=== PATIENT | male | born 1975 | race Two or more races ===

== ENCOUNTER 2018-04-21 12:21 | Emergency (ER) | payer OTHER ==
[2018-04-21 12:21] VITALS: BP 133/94
[2018-04-21] MEDS ORDERED: TETANUS-DIPTH-ACEL PERTUSSIS 0.5ML SYRG IM ONE (13:45)
== END 2018-04-21 14:05 | disposition home or self-care (01) ==
LOC: ER 12:23
DX: S61.432A Puncture wound without foreign body of left hand, initial encounter (principal); W54.0XXA Bitten by dog, initial encounter; Y93.89 Activity, other specified; Y99.8 Other external cause status; Y92.89 Other specified places as the place of occurrence of the external cause
CPT/HCPCS: 73130; 90471; 90715

== ENCOUNTER 2022-09-27 12:49 | Inpatient (IN) | payer MEDICAID, OTHER ==
[~2022-09-27] VITALS: Ht 172.7 cm; Wt 74.6 kg
[2022-09-27 14:01] LABS: Basophils # (auto) 0.1 10 ^3/uL (0-0.2); Basophils % (auto) 0.5 % (0.0-2.0); Eosinophils # (auto) 0.1 10 ^3/uL (0-0.8)
[2022-09-27 14:02] LABS: Urine Bacteria NONE SEEN /hpf (None Seen); Urine Blood 1+ /uL (Negative); Urine Specific Gravity 1.031 (1.001-1.035); Urine WBC 4 /hpf (0 - 3)
[2022-09-27 14:03] LABS: Eosinophils % (auto) 0.9 % (0.0-7.0); Hematocrit 34.2 % (41.0-53.0); Hemoglobin 11.2 g/dL (13.5-17.5); Lymphocytes # (auto) 1.1 10 ^3/uL (0.4-5.4); Lymphocytes % (auto) 9.1 % (10.0-50.0); Mean Corpuscular Hemoglobin 27.3 pg (28.0-32.0); Mean Corpuscular Hgb Conc. 32.8 g/dL (32.0-36.0); Mean Corpuscular Volume 83.3 fL (80.0-100.0); Monocytes # (auto) 0.6 10 ^3/uL (0-1.3); Monocytes % (auto) 5.4 % (0.0-12.0); Neutrophils # (auto) 9.8 10 ^3/uL (1.6-8.6); Neutrophils % (auto) 84.1 % (37.0-80.0); Red Blood Cells 4.11 10^6/uL (4.5-5.90); Red Cell Distribution Width 12.4 % (11.8-14.3); White Blood Cell 11.7 10^3/uL (4.4-10.8)
[2022-09-27 14:45] LABS: Potassium 3.6 mmol/L (3.5-5.1)
[2022-09-27 15:06] LABS: BUN/Creatinine Ratio 8.1 (10.0-20.0)
[2022-09-27 15:07] LABS: Albumin 2.1 g/dL (3.4-5.0); Bilirubin, Total 0.2 mg/dL (0.2-1.0); Calcium 8.8 mg/dL (8.5-10.1); Total Protein 7.8 g/dL (6.4-8.2)
[2022-09-27] MEDS ORDERED: PIPERACILLIN-TAZOB 3.375GM 100 ML IV ONE (17:30)
[2022-09-27] MEDS ORDERED: VANCOMYCIN 1GM/250ML 250 ML IV ONE (17:30)
[2022-09-27] MEDS ORDERED: InsuLIN REG 1unit/0.01ml Soln (100units/ml) IV ONE (17:45)
[2022-09-27] MEDS ORDERED: ACETAMINOPHEN 325 MG TAB PO PRN (18:45)
[2022-09-27] MEDS ORDERED: DOCUSATE SOD 100 MG CAP PO PRN (18:45)
[2022-09-27] MEDS ORDERED: DEXTROSE (50%) 50ML SYRG IV PRN (18:45)
[2022-09-27] MEDS ORDERED: ONDANSETRON HCL 4 MG/2 ML VIAL IV PRN (18:45)
[2022-09-27] MEDS ORDERED: MORPHINE SULFATE INJ 2 MG/ml SYRG IV PRN (18:45)
[2022-09-27] MEDS ORDERED: NITROGLYCERIN 0.4 MG SL TAB SL PRN (18:45)
[2022-09-27] MEDS ORDERED: CLINDAMYCIN 900MG IV 50 ML IV ONE (21:00)
[2022-09-27] MEDS: PIPERACILLIN-TAZOB 3.375GM 100 ML IV SCH (21:35)
[2022-09-27] MEDS ORDERED: SODIUM CHLOR 0.9% PF (SALINE LOCK) 10ML VIAL/SYR IV SCH (22:00)
[2022-09-27] MEDS: ACCU-CHEK COMFORT CURVE STRIP VI SCH (23:36)
[2022-09-27] MEDS: InsuLIN REG 1unit/0.01ml Soln (100units/ml) SC SCH (23:37)
[2022-09-27] MEDS: LINEZOLID 600MG/300ML 300 ML IV SCH (23:37)
[2022-09-27] MEDS: HYDROcodone-ACET 5/325MG TAB PO PRN (23:55)
[2022-09-28] MEDS: SODIUM CHLORIDE 0.9% 1,000 ML IV SCH ×3 (00:54→17:31)
[2022-09-28] MEDS: ACCU-CHEK COMFORT CURVE STRIP VI SCH ×4 (06:52→22:00)
[2022-09-28] MEDS: PIPERACILLIN-TAZOB 3.375GM 100 ML IV SCH ×3 (06:52→23:04)
[2022-09-28] MEDS: InsuLIN REG 1unit/0.01ml Soln (100units/ml) SC SCH ×4 (06:52→23:07)
[2022-09-28 08:05] LABS: INR 1.08 (0.9-1.15); Partial Thromboplastin Time 34.8 sec (24.6-33.4)
[2022-09-28 08:07] LABS: Potassium 3.7 mmol/L (3.5-5.1)
[2022-09-28 08:09] LABS: Basophils # (auto) 0.1 10 ^3/uL (0-0.2); Basophils % (auto) 0.6 % (0.0-2.0); Eosinophils # (auto) 0.2 10 ^3/uL (0-0.8); Lymphocytes % (auto) 11.4 % (10.0-50.0); Monocytes # (auto) 0.6 10 ^3/uL (0-1.3); Neutrophils # (auto) 7.1 10 ^3/uL (1.6-8.6)
[2022-09-28 08:11] LABS: Eosinophils % (auto) 2.4 % (0.0-7.0); Hematocrit 35.4 % (41.0-53.0); Hemoglobin 11.8 g/dL (13.5-17.5); Mean Corpuscular Hemoglobin 28.1 pg (28.0-32.0); Mean Corpuscular Hgb Conc. 33.4 g/dL (32.0-36.0); Monocytes % (auto) 7.1 % (0.0-12.0); Neutrophils % (auto) 78.5 % (37.0-80.0); Red Blood Cells 4.21 10^6/uL (4.5-5.90); Red Cell Distribution Width 12.6 % (11.8-14.3)
[2022-09-28 08:20] LABS: Albumin 2.1 g/dL (3.4-5.0); BUN/Creatinine Ratio 13.2 (10.0-20.0); Bilirubin, Total 0.3 mg/dL (0.2-1.0); Calcium 8.8 mg/dL (8.5-10.1); Total Protein 7.9 g/dL (6.4-8.2)
[2022-09-28] MEDS: LINEZOLID 600MG/300ML 300 ML IV SCH ×2 (10:24→21:01)
[2022-09-28] MEDS: HYDROcodone-ACET 5/325MG TAB PO PRN ×2 (12:59→18:56)
[2022-09-28 17:53] VITALS: BP 169/92
[2022-09-28 20:14] VITALS: BP 150/78
[2022-09-28 22:00] VITALS: BP 149/83
[2022-09-28] MEDS: DAKINS QUARTER STR 0.125% (NaHypochlorite) 473 ML TOPICAL SOL TOP SCH (22:00)
[2022-09-29 05:00] VITALS: BP 143/83
[2022-09-29] MEDS: SODIUM CHLORIDE 0.9% 1,000 ML IV SCH ×2 (05:55→16:18)
[2022-09-29] MEDS: ACCU-CHEK COMFORT CURVE STRIP VI SCH ×7 (05:59→22:00)
[2022-09-29] MEDS: PIPERACILLIN-TAZOB 3.375GM 100 ML IV SCH ×3 (05:59→22:00)
[2022-09-29 06:21] LABS: Eosinophils # (auto) 0.2 10 ^3/uL (0-0.8); Hematocrit 31.3 % (41.0-53.0); Hemoglobin 10.4 g/dL (13.5-17.5); Mean Corpuscular Hgb Conc. 33.3 g/dL (32.0-36.0); Monocytes # (auto) 0.7 10 ^3/uL (0-1.3)
[2022-09-29 06:26] LABS: Basophils # (auto) 0.1 10 ^3/uL (0-0.2); Eosinophils % (auto) 1.9 % (0.0-7.0); Lymphocytes # (auto) 1.3 10 ^3/uL (0.4-5.4); Lymphocytes % (auto) 14.5 % (10.0-50.0); Mean Corpuscular Hemoglobin 27.5 pg (28.0-32.0); Mean Corpuscular Volume 82.8 fL (80.0-100.0); Monocytes % (auto) 7.9 % (0.0-12.0); Neutrophils # (auto) 6.4 10 ^3/uL (1.6-8.6); Neutrophils % (auto) 74.7 % (37.0-80.0); Red Blood Cells 3.78 10^6/uL (4.5-5.90); Red Cell Distribution Width 12.8 % (11.8-14.3); White Blood Cell 8.6 10^3/uL (4.4-10.8)
[2022-09-29] MEDS: InsuLIN REG 1unit/0.01ml Soln (100units/ml) SC SCH ×5 (06:32→23:00)
[2022-09-29 06:45] LABS: BUN/Creatinine Ratio 14.9 (10.0-20.0); Calcium 8.5 mg/dL (8.5-10.1); Potassium 3.2 mmol/L (3.5-5.1)
[2022-09-29] MEDS: HYDROcodone-ACET 5/325MG TAB PO PRN ×2 (06:48→12:31)
[2022-09-29 09:05] VITALS: BP 148/68
[2022-09-29] MEDS: LINEZOLID 600MG/300ML 300 ML IV SCH ×2 (09:18→22:00)
[2022-09-29] MEDS ORDERED: POTASSIUM EFFERVESENT TAB 25 MEQ PO ONE (09:45)
[2022-09-29] MEDS ORDERED: DEXTROSE (50%) 50ML SYRG IV PRN (09:45)
[2022-09-29] MEDS: DAKINS QUARTER STR 0.125% (NaHypochlorite) 473 ML TOPICAL SOL TOP SCH ×2 (09:57→22:00)
[2022-09-29 12:31] VITALS: BP 171/83
[2022-09-29] MEDS ORDERED: LABETALOL HCL 5 MG/ML 4ML SYRINGE IV PRN (13:30)
[2022-09-29 16:24] VITALS: BP 150/91
[2022-09-29] MEDS: HYDROcodone-ACET 10/325MG TAB PO PRN (17:52)
[2022-09-29 22:00] VITALS: BP 140/77
[2022-09-29] MEDS ORDERED: INSULIN LANTUS (GLARGINE) 1 /0.01ml (100units/ml) SC SCH (22:00)
[2022-09-30] MEDS: SODIUM CHLORIDE 0.9% 1,000 ML IV SCH ×2 (01:30→11:30)
[2022-09-30 05:00] VITALS: BP 146/79
[2022-09-30] MEDS: ACCU-CHEK COMFORT CURVE STRIP VI SCH ×5 (05:37→22:07)
[2022-09-30] MEDS: PIPERACILLIN-TAZOB 3.375GM 100 ML IV SCH ×4 (06:12→23:00)
[2022-09-30] MEDS: InsuLIN REG 1unit/0.01ml Soln (100units/ml) SC SCH ×4 (06:26→22:05)
[2022-09-30 06:28] LABS: Basophils # (auto) 0.1 10 ^3/uL (0-0.2); Basophils % (auto) 0.7 % (0.0-2.0); Hemoglobin 9.8 g/dL (13.5-17.5); Neutrophils % (auto) 72.9 % (37.0-80.0); Potassium 3.5 mmol/L (3.5-5.1); Red Cell Distribution Width 12.6 % (11.8-14.3)
[2022-09-30 06:30] LABS: Eosinophils # (auto) 0.2 10 ^3/uL (0-0.8); Eosinophils % (auto) 2.1 % (0.0-7.0); Hematocrit 28.8 % (41.0-53.0); Lymphocytes # (auto) 1.4 10 ^3/uL (0.4-5.4); Lymphocytes % (auto) 16.6 % (10.0-50.0); Mean Corpuscular Hemoglobin 28.1 pg (28.0-32.0); Mean Corpuscular Volume 82.7 fL (80.0-100.0); Monocytes # (auto) 0.6 10 ^3/uL (0-1.3); Monocytes % (auto) 7.7 % (0.0-12.0); Neutrophils # (auto) 5.9 10 ^3/uL (1.6-8.6); Red Blood Cells 3.48 10^6/uL (4.5-5.90); White Blood Cell 8.2 10^3/uL (4.4-10.8)
[2022-09-30] MEDS: MORPHINE SULFATE INJ 2 MG/ml SYRG IV PRN ×2 (06:34→13:42)
[2022-09-30] MEDS ORDERED: ROCURONIUM 10MG/ML 10ML VIAL IV ONE (06:51)
[2022-09-30] MEDS ORDERED: SUCCINYLCHOLINE CHLORIDE 20 MG/ML 10ML VIAL IV ONE (06:51)
[2022-09-30] MEDS ORDERED: PROPOFOL 10 MG/ML 20 ML IV ONE (07:04)
[2022-09-30] MEDS ORDERED: ONDANSETRON HCL 4 MG/2 ML VIAL ONE (07:04)
[2022-09-30] MEDS ORDERED: MIDAZOLAM HCL 2MG/2ML 2ml VIAL (1mg/ml) ONE (07:04)
[2022-09-30] MEDS ORDERED: fentaNYL CITRATE 100 MCG/2 ML VL ONE (07:04)
[2022-09-30] MEDS ORDERED: SODIUM CHLORIDE LOCK 10 ML ONE (07:04)
[2022-09-30] MEDS ORDERED: DexAMETHasone SOD PHOS 4 MG/1ML SDV INJ IV ONE (07:10)
[2022-09-30] MEDS ORDERED: METOCLOPRAMIDE HCL 5MG/ml INJ 2ml VIAL IV PRN (07:15)
[2022-09-30] MEDS ORDERED: HYDROmorphone HCL 2 MG/ML VL/or syr IV PRN ×2 (07:15)
[2022-09-30] MEDS ORDERED: ACCU-CHEK COMFORT CURVE STRIP VI ONE (07:15)
[2022-09-30] MEDS ORDERED: MORPHINE SULFATE INJ 2 MG/ml SYRG IV PRN (07:15)
[2022-09-30] MEDS: BUPIVACAINE HCL 0.25% P/F 10 ML VIAL ONE ×2 (07:37→07:45)
[2022-09-30] MEDS ORDERED: LIDOCAINE W/ EPINEPHRINE 1% 20ML VIAL ONE (07:37)
[2022-09-30] MEDS: LIDOCAINE 1% HCL (LOCAL ANESTH.) INJ 20ML MDV ONE ×2 (07:39→07:45)
[2022-09-30] MEDS ORDERED: LABETALOL HCL 5 MG/ML ML 20ML VIAL IV ONE (09:08)
[2022-09-30] MEDS: DAKINS QUARTER STR 0.125% (NaHypochlorite) 473 ML TOPICAL SOL TOP SCH ×2 (09:15→22:00)
[2022-09-30] MEDS: LINEZOLID 600MG/300ML 300 ML IV SCH ×2 (09:36→21:00)
[2022-09-30] MEDS: NIFEdipine ER 30 MG TAB PO SCH (11:36)
[2022-09-30] MEDS: HYDROcodone-ACET 10/325MG TAB PO PRN ×2 (12:03→18:43)
[2022-09-30 12:22] VITALS: BP 171/84
[2022-09-30 17:00] VITALS: BP 148/76
[2022-09-30] MEDS: hydrALAZINE HCL 20 MG/ML VL IV SCH (17:44)
[2022-09-30 22:00] VITALS: BP 118/70
[2022-09-30] MEDS ORDERED: INSULIN LANTUS (GLARGINE) 1 /0.01ml (100units/ml) SC SCH (22:00)
[2022-10-01] MEDS: hydrALAZINE HCL 20 MG/ML VL IV SCH ×5 (00:17→23:56)
[2022-10-01] MEDS: HYDROcodone-ACET 10/325MG TAB PO PRN (02:41)
[2022-10-01 05:00] VITALS: BP 133/76
[2022-10-01 05:54] LABS: Albumin 1.5 g/dL (3.4-5.0); BUN/Creatinine Ratio 15.9 (10.0-20.0); Potassium 3.7 mmol/L (3.5-5.1)
[2022-10-01 05:57] LABS: Bilirubin, Total 0.2 mg/dL (0.2-1.0); Total Protein 6.3 g/dL (6.4-8.2)
[2022-10-01] MEDS: PIPERACILLIN-TAZOB 3.375GM 100 ML IV SCH (06:11)
[2022-10-01] MEDS: ACCU-CHEK COMFORT CURVE STRIP VI SCH ×4 (06:30→22:01)
[2022-10-01 06:43] LABS: Basophils # (auto) 0.1 10 ^3/uL (0-0.2); Eosinophils # (auto) 0.2 10 ^3/uL (0-0.8); Hemoglobin 9.4 g/dL (13.5-17.5); White Blood Cell 7.8 10^3/uL (4.4-10.8)
[2022-10-01 06:46] LABS: Basophils % (auto) 0.9 % (0.0-2.0); Eosinophils % (auto) 2.4 % (0.0-7.0); Hematocrit 28.3 % (41.0-53.0); Lymphocytes # (auto) 1.6 10 ^3/uL (0.4-5.4); Lymphocytes % (auto) 20.7 % (10.0-50.0); Mean Corpuscular Hemoglobin 27.6 pg (28.0-32.0); Mean Corpuscular Hgb Conc. 33.1 g/dL (32.0-36.0); Mean Corpuscular Volume 83.3 fL (80.0-100.0); Monocytes # (auto) 0.7 10 ^3/uL (0-1.3); Monocytes % (auto) 8.5 % (0.0-12.0); Neutrophils # (auto) 5.3 10 ^3/uL (1.6-8.6); Neutrophils % (auto) 67.5 % (37.0-80.0); Red Cell Distribution Width 12.9 % (11.8-14.3)
[2022-10-01] MEDS: InsuLIN REG 1unit/0.01ml Soln (100units/ml) SC SCH ×4 (06:48→21:43)
[2022-10-01 09:00] VITALS: BP 124/70
[2022-10-01] MEDS: NIFEdipine ER 30 MG TAB PO SCH (09:58)
[2022-10-01] MEDS: LINEZOLID 600MG/300ML 300 ML IV SCH (12:10)
[2022-10-01] MEDS: DAKINS QUARTER STR 0.125% (NaHypochlorite) 473 ML TOPICAL SOL TOP SCH ×2 (12:15→21:50)
[2022-10-01 12:37] VITALS: BP 144/74
[2022-10-01] MEDS ORDERED: VANCOMYCIN PER PHARMACY 0 MG IV SCH (13:15)
[2022-10-01] MEDS: MORPHINE SULFATE INJ 2 MG/ml SYRG IV PRN (14:57)
[2022-10-01] MEDS: VANCOMYCIN 1GM/250ML 250 ML IV SCH ×2 (15:15→21:47)
[2022-10-01 16:42] VITALS: BP 127/69
[2022-10-01] MEDS: PIPERACILLIN-TAZO 4.5GM 100 ML IV SCH ×2 (17:41→23:51)
[2022-10-01] MEDS: INSULIN LANTUS (GLARGINE) 1 /0.01ml (100units/ml) SC SCH (21:43)
[2022-10-01 22:00] VITALS: BP 152/68
[2022-10-02] MEDS: VANCOMYCIN 1GM/250ML 250 ML IV SCH ×2 (04:56→22:37)
[2022-10-02 05:00] VITALS: BP 112/67
[2022-10-02] MEDS: PIPERACILLIN-TAZO 4.5GM 100 ML IV SCH ×3 (06:30→17:26)
[2022-10-02] MEDS: hydrALAZINE HCL 20 MG/ML VL IV SCH ×3 (06:31→17:25)
[2022-10-02] MEDS: ACCU-CHEK COMFORT CURVE STRIP VI SCH ×4 (06:31→22:28)
[2022-10-02] MEDS: InsuLIN REG 1unit/0.01ml Soln (100units/ml) SC SCH ×4 (06:42→22:50)
[2022-10-02 08:00] VITALS: BP 121/69
[2022-10-02] MEDS: NIFEdipine ER 30 MG TAB PO SCH (09:38)
[2022-10-02] MEDS: MORPHINE SULFATE INJ 2 MG/ml SYRG IV PRN (13:24)
[2022-10-02] MEDS: DAKINS QUARTER STR 0.125% (NaHypochlorite) 473 ML TOPICAL SOL TOP SCH ×2 (16:35→22:37)
[2022-10-02 22:00] VITALS: BP 128/74
[2022-10-02] MEDS: INSULIN LANTUS (GLARGINE) 1 /0.01ml (100units/ml) SC SCH (22:27)
[2022-10-03] MEDS: PIPERACILLIN-TAZO 4.5GM 100 ML IV SCH ×4 (00:14→17:29)
[2022-10-03 05:00] VITALS: BP 126/68
[2022-10-03] MEDS: VANCOMYCIN 1GM/250ML 250 ML IV SCH ×2 (05:58→15:15)
[2022-10-03] MEDS: hydrALAZINE HCL 20 MG/ML VL IV SCH ×4 (06:00→17:30)
[2022-10-03] MEDS: ACCU-CHEK COMFORT CURVE STRIP VI SCH ×4 (06:02→21:58)
[2022-10-03] MEDS: InsuLIN REG 1unit/0.01ml Soln (100units/ml) SC SCH ×4 (06:02→22:18)
[2022-10-03 07:00] LABS: Basophils # (auto) 0.1 10 ^3/uL (0-0.2); Eosinophils # (auto) 0.2 10 ^3/uL (0-0.8); Lymphocytes # (auto) 1.3 10 ^3/uL (0.4-5.4); Monocytes # (auto) 0.6 10 ^3/uL (0-1.3); Red Cell Distribution Width 12.8 % (11.8-14.3)
[2022-10-03 07:03] LABS: Basophils % (auto) 0.8 % (0.0-2.0); Eosinophils % (auto) 2.7 % (0.0-7.0); Hematocrit 29.4 % (41.0-53.0); Lymphocytes % (auto) 18.4 % (10.0-50.0); Mean Corpuscular Hemoglobin 27.6 pg (28.0-32.0); Mean Corpuscular Hgb Conc. 33.8 g/dL (32.0-36.0); Mean Corpuscular Volume 81.7 fL (80.0-100.0); Neutrophils % (auto) 69.1 % (37.0-80.0); White Blood Cell 7.2 10^3/uL (4.4-10.8)
[2022-10-03 07:14] LABS: Calcium 8.2 mg/dL (8.5-10.1); Potassium 3.3 mmol/L (3.5-5.1)
[2022-10-03 07:16] LABS: BUN/Creatinine Ratio 8.6 (10.0-20.0)
[2022-10-03 08:58] VITALS: BP 136/71
[2022-10-03 09:29] LABS: INR 1.16 (0.9-1.15); Partial Thromboplastin Time 34.6 sec (24.6-33.4)
[2022-10-03] MEDS: NIFEdipine ER 30 MG TAB PO SCH (09:31)
[2022-10-03] MEDS: DAKINS QUARTER STR 0.125% (NaHypochlorite) 473 ML TOPICAL SOL TOP SCH ×2 (09:31→21:58)
[2022-10-03 13:00] VITALS: BP 141/84
[2022-10-03 16:37] VITALS: BP 136/71
[2022-10-03] MEDS: HYDROcodone-ACET 10/325MG TAB PO PRN (18:04)
[2022-10-03 22:00] VITALS: BP 131/76
[2022-10-03] MEDS: INSULIN LANTUS (GLARGINE) 1 /0.01ml (100units/ml) SC SCH (22:19)
[2022-10-04] MEDS: PIPERACILLIN-TAZO 4.5GM 100 ML IV SCH ×4 (00:01→17:31)
[2022-10-04] MEDS: VANCOMYCIN 1GM/250ML 250 ML IV SCH ×2 (00:58→11:49)
[2022-10-04 05:00] VITALS: BP 126/68
[2022-10-04] MEDS: hydrALAZINE HCL 20 MG/ML VL IV SCH ×4 (05:02→17:31)
[2022-10-04] MEDS: MORPHINE SULFATE INJ 2 MG/ml SYRG IV PRN ×3 (05:16→22:08)
[2022-10-04] MEDS: InsuLIN REG 1unit/0.01ml Soln (100units/ml) SC SCH ×4 (06:10→22:02)
[2022-10-04] MEDS: ACCU-CHEK COMFORT CURVE STRIP VI SCH ×4 (06:10→22:03)
[2022-10-04 06:57] LABS: Basophils # (auto) 0.1 10 ^3/uL (0-0.2); Basophils % (auto) 1.2 % (0.0-2.0); Eosinophils # (auto) 0.3 10 ^3/uL (0-0.8); Eosinophils % (auto) 4.5 % (0.0-7.0); Hematocrit 29.1 % (41.0-53.0); Hemoglobin 9.9 g/dL (13.5-17.5); Lymphocytes # (auto) 1.2 10 ^3/uL (0.4-5.4); Lymphocytes % (auto) 19.1 % (10.0-50.0); Mean Corpuscular Hemoglobin 27.7 pg (28.0-32.0); Mean Corpuscular Hgb Conc. 33.9 g/dL (32.0-36.0); Mean Corpuscular Volume 81.6 fL (80.0-100.0); Monocytes # (auto) 0.6 10 ^3/uL (0-1.3); Neutrophils # (auto) 4.1 10 ^3/uL (1.6-8.6); Neutrophils % (auto) 66.2 % (37.0-80.0); Red Blood Cells 3.57 10^6/uL (4.5-5.90); Red Cell Distribution Width 12.9 % (11.8-14.3); White Blood Cell 6.3 10^3/uL (4.4-10.8)
[2022-10-04 07:12] LABS: Potassium 3.4 mmol/L (3.5-5.1)
[2022-10-04 07:17] LABS: BUN/Creatinine Ratio 9.6 (10.0-20.0); Calcium 8.3 mg/dL (8.5-10.1)
[2022-10-04 08:30] VITALS: BP 140/70
[2022-10-04 08:39] VITALS: BP 140/70
[2022-10-04] MEDS: NIFEdipine ER 30 MG TAB PO SCH (10:27)
[2022-10-04] MEDS: POTASSIUM EFFERVESENT TAB 25 MEQ PO SCH (10:28)
[2022-10-04] MEDS: DAKINS QUARTER STR 0.125% (NaHypochlorite) 473 ML TOPICAL SOL TOP SCH ×2 (10:28→22:04)
[2022-10-04 12:33] VITALS: BP 155/84
[2022-10-04] MEDS ORDERED: LIDOCAINE 1% (LOCAL ANESTH.) PF 5ml SDV ID ONE (14:45)
[2022-10-04] MEDS ORDERED: LANC-336 XX (15:10)
[2022-10-04] MEDS ORDERED: NIFE1TAB31 PO (15:10)
[2022-10-04] MEDS ORDERED: METF-370 PO (15:10)
[2022-10-04] MEDS ORDERED: BLOO1KIT60 XX (15:10)
[2022-10-04] MEDS ORDERED: INSU1INJ19 SC (15:10)
[2022-10-04] MEDS ORDERED: INSU-567 XX (15:10)
[2022-10-04] MEDS ORDERED: HYDR-4798 PO (15:10)
[2022-10-04 16:35] VITALS: BP 152/81
[2022-10-04] MEDS: metFORMIN HYDROCHLORIDE 500 MG TAB PO SCH (17:32)
[2022-10-04 22:00] VITALS: BP 108/60
[2022-10-04] MEDS: SODIUM CHLOR 0.9% PF (SALINE LOCK) 10ML VIAL/SYR IV SCH (22:00)
[2022-10-04] MEDS: INSULIN LANTUS (GLARGINE) 1 /0.01ml (100units/ml) SC SCH (22:03)
[2022-10-05] MEDS: hydrALAZINE HCL 20 MG/ML VL IV SCH ×4 (00:19→19:00)
[2022-10-05] MEDS: PIPERACILLIN-TAZO 4.5GM 100 ML IV SCH ×3 (00:19→12:41)
[2022-10-05 05:00] VITALS: BP 99/55
[2022-10-05] MEDS: InsuLIN REG 1unit/0.01ml Soln (100units/ml) SC SCH ×3 (06:13→19:16)
[2022-10-05] MEDS: ACCU-CHEK COMFORT CURVE STRIP VI SCH ×3 (06:14→17:30)
[2022-10-05 07:01] LABS: BUN/Creatinine Ratio 8.6 (10.0-20.0); Calcium 8.4 mg/dL (8.5-10.1); Potassium 3.5 mmol/L (3.5-5.1)
[2022-10-05 08:00] VITALS: BP 109/57
[2022-10-05] MEDS: metFORMIN HYDROCHLORIDE 500 MG TAB PO SCH ×2 (09:25→18:51)
[2022-10-05] MEDS: NIFEdipine ER 30 MG TAB PO SCH (09:28)
[2022-10-05] MEDS: POTASSIUM EFFERVESENT TAB 25 MEQ PO SCH (09:29)
[2022-10-05 09:30] VITALS: BP 109/57
[2022-10-05] MEDS: SODIUM CHLOR 0.9% PF (SALINE LOCK) 10ML VIAL/SYR IV SCH (09:30)
[2022-10-05] MEDS: DAKINS QUARTER STR 0.125% (NaHypochlorite) 473 ML TOPICAL SOL TOP SCH (10:30)
[2022-10-05 11:11] VITALS: BP 133/79
[2022-10-05 13:00] VITALS: BP 146/78
[2022-10-05] MEDS ORDERED: cefTRIAXone 1GM/50ML D5W 50 ML IV SCH (15:54)
[2022-10-05 16:40] VITALS: BP 116/73
[2022-10-05] MEDS ORDERED: DAPTOmycin 500 MG in SODIUM CHL 0.9% 50 ML IV SCH (18:00)
== END 2022-10-05 19:00 | disposition home health service (06) | DRG 853 ==
LOC: ER 12:49 → OVERFLOW 19:03 → TELE-WESTW 09-28 17:51 → WEST WING 09-28 19:05
PROVIDERS: ADMIT Nurse Practitioner Family; ATTEND Nurse Practitioner Acute Care
PROC: 0Y6W0Z0 Detachment at Left 4th Toe, Complete, Open Approach (ICD-10-PCS; 2022-09-30)
PROC: 0Y6Y0Z0 Detachment at Left 5th Toe, Complete, Open Approach (ICD-10-PCS; 2022-09-30)
PROC: 02HV33Z Insertion of Infusion Device into Superior Vena Cava, Percutaneous Approach (ICD-10-PCS; principal; 2022-10-04)
PROC: B548ZZA Ultrasonography of Superior Vena Cava, Guidance (ICD-10-PCS; 2022-10-04)
DX: A41.9 Sepsis, unspecified organism (principal); E43 Unspecified severe protein-calorie malnutrition; M72.6 Necrotizing fasciitis; I96 Gangrene, not elsewhere classified; L03.116 Cellulitis of left lower limb; M86.8X7 Other osteomyelitis, ankle and foot; N17.9 Acute kidney failure, unspecified; F17.200 Nicotine dependence, unspecified, uncomplicated; E11.65 Type 2 diabetes mellitus with hyperglycemia; E11.621 Type 2 diabetes mellitus with foot ulcer; L97.509 Non-pressure chronic ulcer of other part of unspecified foot with unspecified severity; E11.40 Type 2 diabetes mellitus with diabetic neuropathy, unspecified; E11.51 Type 2 diabetes mellitus with diabetic peripheral angiopathy without gangrene; E11.628 Type 2 diabetes mellitus with other skin complications; E11.69 Type 2 diabetes mellitus with other specified complication; E78.5 Hyperlipidemia, unspecified; E87.6 Hypokalemia; I10 Essential (primary) hypertension; J43.9 Emphysema, unspecified; L97.529 Non-pressure chronic ulcer of other part of left foot with unspecified severity; Z68.25 Body mass index [BMI] 25.0-25.9, adult; Z59.7 Insufficient social insurance and welfare support; Z79.84 Long term (current) use of oral hypoglycemic drugs; Z82.3 Family history of stroke; Z91.148 Patient's other noncompliance with medication regimen for other reason; Z88.8 Allergy status to other drugs, medicaments and biological substances
CPT/HCPCS: 36415; 36569; 73700; 80048; 80053; 80202; 81001; 82010; 82962; 83036; 83605; 83690; 84484; 85025; 85610; 85652; 85730; 86141; 86850; 86900; 86901; 87040; 87070; 87075; 87205; 93306; 93926; 93971; G0378; J0330; J0696; J1100; J1815; J2001; J2250; J2405; J2543; J2704; J3490

== ENCOUNTER 2022-10-08 06:04 | Inpatient (IN) | payer SELFPAY ==
[~2022-10-08] VITALS: Ht 177.8 cm
[~2022-10-08 06:04] MED LIST: BLOO1KIT60 XX; HYDR-4798 PO; INSU-567 XX; INSU1INJ19 SC; LANC-336 XX; METF-370 PO; NIFE1TAB31 PO
[2022-10-08] MEDS ORDERED: CLINDAMYCIN 600MG IV 50 ML IV ONE (07:30)
[2022-10-08] MEDS ORDERED: cefTRIAXone 1GM/50ML D5W 50 ML IV ONE (07:30)
[2022-10-08 07:50] LABS: Hematocrit 34.3 % (41.0-53.0); Nucleated Red Blood Cells % 0.1 %
[2022-10-08 07:53] LABS: Basophils # (auto) 0.2 10 ^3/uL (0-0.2); Basophils % (auto) 1.7 % (0.0-2.0); Eosinophils # (auto) 0.2 10 ^3/uL (0-0.8); Eosinophils % (auto) 2.2 % (0.0-7.0); Hemoglobin 11.3 g/dL (13.5-17.5); Lymphocytes # (auto) 0.9 10 ^3/uL (0.4-5.4); Lymphocytes % (auto) 10.3 % (10.0-50.0); Mean Corpuscular Hemoglobin 27.2 pg (28.0-32.0); Mean Corpuscular Hgb Conc. 33.1 g/dL (32.0-36.0); Mean Corpuscular Volume 82.3 fL (80.0-100.0); Monocytes # (auto) 0.5 10 ^3/uL (0-1.3); Neutrophils # (auto) 7.1 10 ^3/uL (1.6-8.6); Neutrophils % (auto) 79.8 % (37.0-80.0); Red Blood Cells 4.17 10^6/uL (4.5-5.90); Red Cell Distribution Width 12.7 % (11.8-14.3)
[2022-10-08 08:00] LABS: INR 1.14 (0.9-1.15); Partial Thromboplastin Time 31.9 SEC (24.5-34.5)
[2022-10-08 08:19] LABS: Albumin 2.7 g/dL (3.4-5.0); Calcium 8.9 mg/dL (8.5-10.1); Potassium 4.1 mmol/L (3.5-5.1)
[2022-10-08 08:23] LABS: BUN/Creatinine Ratio 11.8 (10.0-20.0); Bilirubin, Total 0.3 mg/dL (0.2-1.0); Total Protein 8.4 g/dL (6.4-8.2)
[2022-10-08] MEDS ORDERED: CLINDAMYCIN HCL 150 MG CAP PO ONE (08:45)
[2022-10-08] MEDS ORDERED: DEXTROSE (50%) 50ML SYRG IV PRN (09:00)
[2022-10-08] MEDS ORDERED: DAPTOmycin 6MG/KG PER PHARMACY 0 MG IV SCH (09:00)
[2022-10-08] MEDS ORDERED: ONDANSETRON HCL 4 MG/2 ML VIAL IV PRN (09:00)
[2022-10-08] MEDS: SODIUM CHLORIDE 0.9% 1,000 ML IV SCH ×2 (09:26→17:56)
[2022-10-08] MEDS: ENOXAPARIN SOD 40 MG/0.4 ML SYRINGE SC SCH (09:35)
[2022-10-08] MEDS: NIFEdipine ER 30 MG TAB PO SCH (09:36)
[2022-10-08] MEDS: InsuLIN REG 1unit/0.01ml Soln (100units/ml) SC SCH ×3 (12:39→22:00)
[2022-10-08] MEDS: DAPTOmycin 500 MG in SODIUM CHL 0.9% 50 ML IV SCH (13:28)
[2022-10-08] MEDS: ACCU-CHEK COMFORT CURVE STRIP VI SCH ×3 (13:28→22:40)
[2022-10-08] MEDS: MORPHINE SULFATE INJ 2 MG/ml SYRG IV PRN ×2 (18:05→22:46)
[2022-10-09] MEDS: SODIUM CHLORIDE 0.9% 1,000 ML IV SCH ×3 (02:13→18:20)
[2022-10-09 02:29] VITALS: BP 161/85
[2022-10-09 05:25] VITALS: BP 160/88
[2022-10-09] MEDS: ACCU-CHEK COMFORT CURVE STRIP VI SCH ×4 (06:08→22:22)
[2022-10-09 06:12] LABS: Eosinophils # (auto) 0.2 10 ^3/uL (0-0.8); Lymphocytes # (auto) 1.2 10 ^3/uL (0.4-5.4); Monocytes # (auto) 0.6 10 ^3/uL (0-1.3)
[2022-10-09] MEDS: InsuLIN REG 1unit/0.01ml Soln (100units/ml) SC SCH ×4 (06:12→22:24)
[2022-10-09 06:16] LABS: Basophils # (auto) 0.2 10 ^3/uL (0-0.2); Basophils % (auto) 1.7 % (0.0-2.0); Eosinophils % (auto) 2.5 % (0.0-7.0); Hematocrit 33.8 % (41.0-53.0); Hemoglobin 11.3 g/dL (13.5-17.5); Mean Corpuscular Hemoglobin 27.3 pg (28.0-32.0); Mean Corpuscular Hgb Conc. 33.5 g/dL (32.0-36.0); Mean Corpuscular Volume 81.4 fL (80.0-100.0); Monocytes % (auto) 6.6 % (0.0-12.0); Neutrophils # (auto) 7.1 10 ^3/uL (1.6-8.6); Neutrophils % (auto) 76.2 % (37.0-80.0); Red Blood Cells 4.15 10^6/uL (4.5-5.90); Red Cell Distribution Width 13.1 % (11.8-14.3); White Blood Cell 9.3 10^3/uL (4.4-10.8)
[2022-10-09 06:42] LABS: Albumin 2.5 g/dL (3.4-5.0); Calcium 8.9 mg/dL (8.5-10.1)
[2022-10-09 06:45] LABS: BUN/Creatinine Ratio 14.7 (10.0-20.0); Bilirubin, Total 0.3 mg/dL (0.2-1.0); Total Protein 7.6 g/dL (6.4-8.2)
[2022-10-09 09:00] VITALS: BP 144/81
[2022-10-09] MEDS: NIFEdipine ER 30 MG TAB PO SCH (09:28)
[2022-10-09] MEDS: ENOXAPARIN SOD 40 MG/0.4 ML SYRINGE SC SCH (09:28)
[2022-10-09] MEDS: CEFTRIAXONE SODIUM 2 GM in D5W 5% 50 ML IV SCH (11:42)
[2022-10-09 13:00] VITALS: BP 166/87
[2022-10-09] MEDS: DAPTOmycin 500 MG in SODIUM CHL 0.9% 50 ML IV SCH (14:25)
[2022-10-09 17:00] VITALS: BP 187/94
[2022-10-09 22:00] VITALS: BP 152/88
[2022-10-10] MEDS ORDERED: OMEP-434 PO (00:08)
[2022-10-10] MEDS: SODIUM CHLORIDE 0.9% 1,000 ML IV SCH ×3 (02:40→15:43)
[2022-10-10 05:00] VITALS: BP 128/72
[2022-10-10] MEDS: ACCU-CHEK COMFORT CURVE STRIP VI SCH ×4 (06:13→22:51)
[2022-10-10] MEDS: InsuLIN REG 1unit/0.01ml Soln (100units/ml) SC SCH ×4 (06:14→22:51)
[2022-10-10 09:00] VITALS: BP 143/87
[2022-10-10] MEDS: CEFTRIAXONE SODIUM 2 GM in D5W 5% 50 ML IV SCH (09:40)
[2022-10-10] MEDS: NIFEdipine ER 30 MG TAB PO SCH (09:40)
[2022-10-10] MEDS: ENOXAPARIN SOD 40 MG/0.4 ML SYRINGE SC SCH (09:40)
[2022-10-10] MEDS: DAPTOmycin 500 MG in SODIUM CHL 0.9% 50 ML IV SCH (11:45)
[2022-10-10 12:45] VITALS: BP 122/70
[2022-10-10 17:00] VITALS: BP 135/74
[2022-10-10] MEDS ORDERED: hydrALAZINE HCL 20 MG/ML VL IV PRN (21:45)
[2022-10-10] MEDS ORDERED: HYDROcodone-ACET 5/325MG TAB PO PRN (21:45)
[2022-10-10 22:00] VITALS: BP 156/83
[2022-10-11] MEDS: SODIUM CHLORIDE 0.9% 1,000 ML IV SCH ×2 (03:50→16:13)
[2022-10-11 05:00] VITALS: BP 135/78
[2022-10-11] MEDS: ACCU-CHEK COMFORT CURVE STRIP VI SCH ×4 (06:41→22:08)
[2022-10-11] MEDS: InsuLIN REG 1unit/0.01ml Soln (100units/ml) SC SCH ×4 (06:45→22:07)
[2022-10-11 09:00] VITALS: BP 134/80
[2022-10-11] MEDS: CEFTRIAXONE SODIUM 2 GM in D5W 5% 50 ML IV SCH (09:26)
[2022-10-11] MEDS: NIFEdipine ER 30 MG TAB PO SCH (09:26)
[2022-10-11] MEDS: ENOXAPARIN SOD 40 MG/0.4 ML SYRINGE SC SCH (09:27)
[2022-10-11] MEDS: DAPTOmycin 500 MG in SODIUM CHL 0.9% 50 ML IV SCH (11:39)
[2022-10-11 13:00] VITALS: BP 146/79
[2022-10-11] MEDS ORDERED: HYDROcodone-ACET 5/325MG TAB PO PRN (15:00)
[2022-10-11] MEDS ORDERED: ONDANSETRON HCL 4 MG/2 ML VIAL IV PRN (15:00)
[2022-10-11] MEDS ORDERED: ACETAMINOPHEN 500 MG TAB PO PRN (15:00)
[2022-10-11 17:00] VITALS: BP 157/83
[2022-10-11 22:00] VITALS: BP 146/9
[2022-10-11] MEDS ORDERED: INSULIN LANTUS (GLARGINE) 1 /0.01ml (100units/ml) SC SCH (22:00)
[2022-10-12 05:00] VITALS: BP 138/79
[2022-10-12] MEDS: ACCU-CHEK COMFORT CURVE STRIP VI SCH ×2 (06:30→11:40)
[2022-10-12] MEDS: SODIUM CHLORIDE 0.9% 1,000 ML IV SCH (06:30)
[2022-10-12] MEDS: InsuLIN REG 1unit/0.01ml Soln (100units/ml) SC SCH ×2 (06:31→11:42)
[2022-10-12 09:14] VITALS: BP 152/87
[2022-10-12] MEDS: CEFTRIAXONE SODIUM 2 GM in D5W 5% 50 ML IV SCH (09:27)
[2022-10-12] MEDS: ENOXAPARIN SOD 40 MG/0.4 ML SYRINGE SC SCH (09:27)
[2022-10-12] MEDS: NIFEdipine ER 30 MG TAB PO SCH (09:28)
[2022-10-12 13:00] VITALS: BP 157/87
[2022-10-12] MEDS ORDERED: AUG875T PO (14:41)
[2022-10-12 15:35] VITALS: BP 152/87
== END 2022-10-12 16:38 | disposition home or self-care (01) | DRG 638 ==
LOC: ER 06:04 → OVERFLOW 09:07 → WEST WING 10-09 01:37
PROVIDERS: ADMIT Nurse Practitioner Family; ATTEND Nurse Practitioner Acute Care
DX: E11.69 Type 2 diabetes mellitus with other specified complication (principal); E46 Unspecified protein-calorie malnutrition; L03.116 Cellulitis of left lower limb; M86.172 Other acute osteomyelitis, left ankle and foot; N17.0 Acute kidney failure with tubular necrosis; E11.65 Type 2 diabetes mellitus with hyperglycemia; E11.51 Type 2 diabetes mellitus with diabetic peripheral angiopathy without gangrene; N18.9 Chronic kidney disease, unspecified; E11.22 Type 2 diabetes mellitus with diabetic chronic kidney disease; I12.9 Hypertensive chronic kidney disease with stage 1 through stage 4 chronic kidney disease, or unspecified chronic kidney disease; Z79.4 Long term (current) use of insulin; Z68.22 Body mass index [BMI] 22.0-22.9, adult
CPT/HCPCS: 36415; 73630; 80053; 82962; 84484; 85025; 85610; 85730; 87081; 93970; 96365; 96375; G0378; J0696; J1815; J2405; J7060

== ENCOUNTER 2023-11-16 10:57 | Inpatient (IN) | payer BC, MEDICAID ==
[~2023-11-16] VITALS: Ht 177.8 cm; Wt 87.1 kg
[~2023-11-16 10:57] MED LIST changes: +AUG875T PO; +OMEP-434 PO
[2023-11-16] MEDS: TETANUS-DIPTH-ACEL PERTUSSIS 0.5ML SYR Tdap IM ONE (11:15)
[2023-11-16 11:42] LABS: Basophils # (auto) 0.1 10 ^3/uL (0-0.2); Basophils % (auto) 0.8 % (0.0-2.0); Eosinophils # (auto) 0.2 10 ^3/uL (0-0.8); Eosinophils % (auto) 2.4 % (0.0-7.0); Hematocrit 35.4 % (41.0-53.0); Hemoglobin 11.8 g/dL (13.5-17.5); Lymphocytes # (auto) 1.8 10 ^3/uL (0.4-5.4); Lymphocytes % (auto) 22.1 % (10.0-50.0); Mean Corpuscular Hemoglobin 28.6 pg (28.0-32.0); Mean Corpuscular Hgb Conc. 33.2 g/dL (32.0-36.0); Mean Corpuscular Volume 86.3 fL (80.0-100.0); Monocytes # (auto) 0.5 10 ^3/uL (0-1.3); Monocytes % (auto) 6.4 % (0.0-12.0); Neutrophils # (auto) 5.6 10 ^3/uL (1.6-8.6); Neutrophils % (auto) 68.3 % (37.0-80.0); Red Cell Distribution Width 14.5 % (11.8-14.3); White Blood Cell 8.2 10^3/uL (4.4-10.8)
[2023-11-16 11:51] LABS: Chloride 106 mmol/L (98-107); Potassium 4.4 mmol/L (3.5-5.1); Sodium 141 mmol/L (136-145)
[2023-11-16 11:52] LABS: Anion Gap 8 (5-15); Calcium 9.9 mg/dL (8.7-10.4); Carbon Dioxide 27 mmol/L (20-30)
[2023-11-16] MEDS: PIPERACILLIN-TAZO 4.5GM 100 ML IV ONE (11:53)
[2023-11-16] MEDS: KETOROLAC TROMETH 30 MG/ML 1ML VIAL IV ONE (11:53)
[2023-11-16 11:57] LABS: BUN/Creatinine Ratio 14.6 (10.0-20.0); Blood Urea Nitrogen 21 mg/dL (9-23); Glucose 191 mg/dL (74-106)
[2023-11-16 12:53] VITALS: PULSE 82; RESP 20; O2SAT 96
[2023-11-16 13:59] LABS: Urine Bacteria None Seen /hpf (None Seen)
[2023-11-16 14:20] LABS: Urine Blood TRACE /uL (Negative); Urine Clarity Clear (Clear); Urine Color Light-Yellow (Yellow); Urine Protein, UAD 2+ (Negative); Urine Specific Gravity 1.027 (1.001-1.035); Urine Urobilinogen Normal (Negative); Urine WBC <1 /hpf (0 - 3)
[2023-11-16] MEDS ORDERED: ONDANSETRON HCL 4 MG/2 ML VIAL IV PRN (15:45)
[2023-11-16] MEDS: AMPICILLIN & SULBACTAM SODIUM 3 GM in SODIUM CHL 0.9% 100 ML IV SCH (15:45)
[2023-11-16] MEDS: SODIUM CHLORIDE 0.9% 1,000 ML IV SCH (15:45)
[2023-11-16] MEDS ORDERED: NITROGLYCERIN 0.4 MG SL TAB SL PRN (15:45)
[2023-11-16] MEDS ORDERED: DOCUSATE SOD 100 MG CAP PO PRN (15:45)
[2023-11-16] MEDS: SODIUM CHLORIDE 0.9% 2,000 ML IV ONE (15:45)
[2023-11-16] MEDS ORDERED: MORPHINE SULFATE INJ 2 MG/ml SYRG IV PRN (15:45)
[2023-11-16] MEDS ORDERED: DEXTROSE (50%) 50ML SYRG IV PRN (15:45)
[2023-11-16] MEDS ORDERED: VANCOMYCIN PER PHARMACY 0 MG IV SCH (15:45)
[2023-11-16] MEDS: ENOXAPARIN SOD 40 MG/0.4 ML SYRINGE SC SCH (16:49)
[2023-11-16] MEDS: VANCOMYCIN 1GM/200ML 200 ML IV ONE (16:49)
[2023-11-16 17:12] LABS: INR 1.03 (0.9-1.15); Prothrombin Time 10.9 sec (9.3-11.8)
[2023-11-16 17:52] VITALS: PULSE 85; RESP 18; O2SAT 98
[2023-11-16] MEDS ORDERED: METF-370 PO (18:04)
[2023-11-16] MEDS ORDERED: FAMO20TA10 PO ×2 (18:04→18:14)
[2023-11-16] MEDS ORDERED: ATOR40TA52 PO (18:14)
[2023-11-16] MEDS ORDERED: AMLO1TAB22 PO (18:14)
[2023-11-16 18:49] VITALS: BP 169/92; PULSE 80; RESP 20; TEMP 98.2; O2SAT 99
[2023-11-16 20:00] VITALS: PULSE 85; RESP 19; O2SAT 97
[2023-11-16] MEDS: InsuLIN REG 1unit/0.01ml Soln (100units/ml) SC SCH (20:56)
[2023-11-16] MEDS: ACCU-CHEK COMFORT CURVE STRIP VI SCH (20:57)
[2023-11-16 21:00] VITALS: BP 136/76; PULSE 85; RESP 19; TEMP 98.3; O2SAT 97
[2023-11-17] VITALS (7 sets, daily range): BP systolic 105–157; BP diastolic 68–81; PULSE 66–96; RESP 15–22; TEMP 97.9–99; O2SAT 96–99
[2023-11-17] MEDS ORDERED: AMPICILLIN & SULBACTAM SODIUM 3 GM in SODIUM CHL 0.9% 100 ML IV SCH
[2023-11-17] MEDS: AMPICILLIN & SULBACTAM 3 GM in NS 0.9% 100 ML IV SCH (00:30)
[2023-11-17] MEDS: VANCOMYCIN 1GM/200ML 200 ML IV SCH (05:49)
[2023-11-17 06:18] LABS: Basophils # (auto) 0.1 10 ^3/uL (0-0.2); Basophils % (auto) 1.2 % (0.0-2.0); Eosinophils # (auto) 0.3 10 ^3/uL (0-0.8); Hematocrit 32.5 % (41.0-53.0); Hemoglobin 11.1 g/dL (13.5-17.5); Lymphocytes # (auto) 1.5 10 ^3/uL (0.4-5.4); Mean Corpuscular Hemoglobin 28.9 pg (28.0-32.0); Mean Corpuscular Volume 84.9 fL (80.0-100.0); Monocytes # (auto) 0.6 10 ^3/uL (0-1.3); Monocytes % (auto) 8.4 % (0.0-12.0); Neutrophils # (auto) 4.7 10 ^3/uL (1.6-8.6); Neutrophils % (auto) 65.4 % (37.0-80.0); Red Blood Cells 3.83 10^6/uL (4.5-5.90); Red Cell Distribution Width 14.3 % (11.8-14.3); White Blood Cell 7.1 10^3/uL (4.4-10.8)
[2023-11-17 06:26] LABS: Alanine Aminotransferase 15 U/L (7-40); Albumin 3.9 g/dL (3.2-4.8); Alkaline Phosphatase 75 U/L (46-116); Anion Gap 9 (5-15); Aspartate Aminotransferase 12 U/L (13-40); BUN/Creatinine Ratio 18.8 (10.0-20.0); Blood Urea Nitrogen 25 mg/dL (9-23); Calcium 8.9 mg/dL (8.7-10.4); Carbon Dioxide 24 mmol/L (20-30); Chloride 109 mmol/L (98-107); Glucose 138 mg/dL (74-106); Sodium 142 mmol/L (136-145)
[2023-11-17 06:27] LABS: Bilirubin, Total 0.5 mg/dL (0.2-1.0); Total Protein 6.3 g/dL (5.7-8.2)
[2023-11-17] MEDS: amLODIPine BESYLATE 5 MG TAB PO ONE ×2 (15:10→21:52)
[2023-11-17] MEDS: ATORVASTATIN 20 MG TAB PO SCH (21:51)
[2023-11-18] VITALS (7 sets, daily range): BP systolic 115–159; BP diastolic 70–83; PULSE 67–81; RESP 18–20; TEMP 98.1–99.1; O2SAT 95–99
[2023-11-18] MEDS: FAMOTIDINE 20 MG TAB PO SCH (00:11)
[2023-11-18] MEDS ORDERED: amLODIPine BESYLATE 5 MG TAB PO SCH (10:00)
[2023-11-18] MEDS: amLODIPine BESYLATE 5 MG TAB PO SCH (10:19)
[2023-11-19 01:00] VITALS: BP 139/72; PULSE 77; RESP 20; TEMP 98.3; O2SAT 98
[2023-11-19 05:00] VITALS: BP 136/74; PULSE 68; RESP 20; TEMP 98.3; O2SAT 97
[2023-11-19 07:57] LABS: Basophils # (auto) 0 10 ^3/uL (0-0.2); Basophils % (auto) 0.8 % (0.0-2.0); Eosinophils # (auto) 0.3 10 ^3/uL (0-0.8); Eosinophils % (auto) 5.9 % (0.0-7.0); Hematocrit 30.1 % (41.0-53.0); Hemoglobin 10.2 g/dL (13.5-17.5); Lymphocytes % (auto) 16.4 % (10.0-50.0); Mean Corpuscular Hemoglobin 28.7 pg (28.0-32.0); Mean Corpuscular Hgb Conc. 33.9 g/dL (32.0-36.0); Mean Corpuscular Volume 84.8 fL (80.0-100.0); Monocytes # (auto) 0.5 10 ^3/uL (0-1.3); Neutrophils % (auto) 67.9 % (37.0-80.0); Red Blood Cells 3.55 10^6/uL (4.5-5.90); Red Cell Distribution Width 13.7 % (11.8-14.3); White Blood Cell 5.8 10^3/uL (4.4-10.8)
[2023-11-19 08:00] VITALS: PULSE 69; RESP 17; O2SAT 98
[2023-11-19 08:16] LABS: Chloride 111 mmol/L (98-107); Sodium 142 mmol/L (136-145)
[2023-11-19 08:17] LABS: Anion Gap 6 (5-15); Calcium 8.7 mg/dL (8.7-10.4); Carbon Dioxide 25 mmol/L (20-30)
[2023-11-19 08:20] VITALS: BP 140/77; PULSE 69; RESP 17; TEMP 98; O2SAT 98
[2023-11-19 08:22] LABS: BUN/Creatinine Ratio 9.6 (10.0-20.0); Blood Urea Nitrogen 11 mg/dL (9-23); Glucose 201 mg/dL (74-106)
[2023-11-19 12:00] VITALS: BP 168/85; PULSE 76; RESP 17; TEMP 98.3; O2SAT 98
[2023-11-19] MEDS: Juven Orange Powder PACKET 27.5gm PO SCH (12:30)
[2023-11-19] MEDS: INSULIN LANTUS (GLARGINE) 1 /0.01ml (100units/ml) SC SCH (12:30)
[2023-11-19] MEDS ORDERED: BACDST PO (13:51)
[2023-11-19] MEDS ORDERED: AUG875T PO (13:51)
[2023-11-19 14:37] VITALS: BP 140/77; PULSE 76; RESP 17; TEMP 98.3; O2SAT 98
[2023-11-20 09:41] LABS: Hepatitis B Core Total AB Negative (Negative)
[2023-11-20 11:01] LABS: Hepatitis A Total Antibody Negative (Negative); Hepatitis B Surface Antibody Positive (Negative); Hepatitis B Surface Antigen Negative (Negative); Hepatitis C Antibody Negative (Negative)
== END 2023-11-19 15:41 | disposition home or self-care (01) | DRG 871 ==
LOC: ER 10:57 → OVERFLOW 15:52 → WEST WING 17:48
PROVIDERS: ADMIT Internal Medicine; ATTEND Emergency Medicine
DX: A41.9 Sepsis, unspecified organism (principal); N17.0 Acute kidney failure with tubular necrosis; L03.115 Cellulitis of right lower limb; L97.519 Non-pressure chronic ulcer of other part of right foot with unspecified severity; I10 Essential (primary) hypertension; E11.621 Type 2 diabetes mellitus with foot ulcer; E78.5 Hyperlipidemia, unspecified; S91.301A Unspecified open wound, right foot, initial encounter; X58.XXXA Exposure to other specified factors, initial encounter; E11.40 Type 2 diabetes mellitus with diabetic neuropathy, unspecified; E66.3 Overweight; Z79.4 Long term (current) use of insulin; Z79.899 Other long term (current) drug therapy; Z83.3 Family history of diabetes mellitus; Z82.49 Family history of ischemic heart disease and other diseases of the circulatory system; Z68.27 Body mass index [BMI] 27.0-27.9, adult; Y93.89 Activity, other specified; Y92.89 Other specified places as the place of occurrence of the external cause; Y99.8 Other external cause status
CPT/HCPCS: 36415; 72100; 73630; 73718; 80048; 80053; 80202; 81001; 82565; 82962; 83036; 83605; 85025; 85610; 86704; 86706; 86708; 86803; 86850; 86900; 86901; 87040; 87077; 87186; 87205; 87340; 96365; 96366; 96367; 96372; 96375; G0378; J1815; J1885; J2543

== ENCOUNTER 2024-07-20 07:00 | Day surgery (SDC) | payer BC, MEDICAID ==
[2024-07-15 09:42] LABS: Basophils # (auto) 0.1 10 ^3/uL (0-0.2); Basophils % (auto) 1.1 % (0.0-2.0); Eosinophils # (auto) 0.2 10 ^3/uL (0-0.8); Hemoglobin 12.7 g/dL (13.5-17.5); Lymphocytes # (auto) 2.5 10 ^3/uL (0.4-5.4); Lymphocytes % (auto) 32.1 % (10.0-50.0); Nucleated Red Blood Cells % 0.1 %
[2024-07-15 09:44] LABS: Eosinophils % (auto) 2.9 % (0.0-7.0); Hematocrit 39.3 % (41.0-53.0); Mean Corpuscular Hemoglobin 26.4 pg (28.0-32.0); Mean Corpuscular Hgb Conc. 32.4 g/dL (32.0-36.0); Mean Corpuscular Volume 81.4 fL (80.0-100.0); Monocytes # (auto) 0.4 10 ^3/uL (0-1.3); Monocytes % (auto) 5.6 % (0.0-12.0); Neutrophils # (auto) 4.6 10 ^3/uL (1.6-8.6); Neutrophils % (auto) 58.3 % (37.0-80.0); Platelet Count (auto) 351 10^3/uL (140-450); Red Blood Cells 4.82 10^6/uL (4.5-5.90); Red Cell Distribution Width 15.1 % (11.8-14.3); White Blood Cell 7.9 10^3/uL (4.4-10.8)
[2024-07-15 10:06] LABS: INR 0.95 (0.9-1.15); Partial Thromboplastin Time 29.1 SEC (24.5-34.5); Prothrombin Time 10.1 sec (9.3-11.8)
[2024-07-15 10:37] LABS: Alanine Aminotransferase 27 U/L (7-40); Alkaline Phosphatase 71 U/L (46-116); BUN/Creatinine Ratio 14.7 (10.0-20.0); Blood Urea Nitrogen 21 mg/dL (9-23); Carbon Dioxide 29 mmol/L (20-31); Potassium 4.4 mmol/L (3.5-5.1); Sodium 141 mmol/L (136-145); Total Protein 7.4 g/dL (5.7-8.2)
[2024-07-15 10:38] LABS: Aspartate Aminotransferase 16 U/L (13-40); Bilirubin, Total 0.5 mg/dL (0.2-1.0)
[2024-07-15 10:42] LABS: Albumin 4.8 g/dL (3.2-4.8); Glucose 180 mg/dL (74-106)
[2024-07-15 10:54] LABS: Anion Gap 6 (5-15); Chloride 106 mmol/L (98-107)
[~2024-07-20] VITALS: Ht 177.8 cm; Wt 77.1 kg
[~2024-07-20 07:00] MED LIST changes: +AMLO1TAB22 PO; +ASPI-498 OR; +ATOR40TA52 PO; -AUG875T PO; -BLOO1KIT60 XX; +CLON0.1T PO; +DULA0.5I SC; +EMPA1TAB3 PO; +EZET10TA22 PO; +FAMO20TA10 PO; +GLUC1TAB PO; -HYDR-4798 PO; +HYDR12.59 PO; -INSU-567 XX; -INSU1INJ19 SC; -LANC-336 XX; +MULT-1018 OR; -NIFE1TAB31 PO; -OMEP-434 PO
[2024-07-20] MEDS ORDERED: diphenhdrAMINE HCL 50 MG/1 ML VL ONE (07:29)
[2024-07-20 08:57] VITALS: PULSE 78; RESP 16; O2SAT 100
[2024-07-20] MEDS: fentaNYL CITRATE 100 MCG/2 ML VL ONE (09:01)
[2024-07-20] MEDS: MIDAZOLAM HCL 2MG/2ML 2ml VIAL (1mg/ml) ONE (09:01)
[2024-07-20 09:28] VITALS: PULSE 80; RESP 13; TEMP 98.9; O2SAT 97
--- NOTE | 2024-07-20 09:30 | DVHNC2 ---
Procedure - DATE OF PROCEDURE: July 20, 2024 SURGEON: USAMA CONNOLLY MD REFERRING PROVIDER: Dr Alexandra MOHAN PROCEDURE PERFORMED: 1 Colonoscopy with moderate sedation 2. Colonoscopy with hot snare polypectomy line 3. Colonoscopy with cold snare polypectomy PRE-PROCEDURE DIAGNOSIS: 1. COLON CANCER SCREENING POSTPROCEDURE DIAGNOSIS: 1. TWO COLON POLYPS AND INTERNAL HEMORRHOIDS INDICATIONS FOR PROCEDURE: The patient is a 48-year-old male presents for outpatient colonoscopy for screening MEDICATIONS USED: 4 mg of Versed IV and 75 mcg IV given in incremental doses DETAILS OF THE PROCEDURE: Informed consent was obtained after risks, benefits, and alternatives, were discussed at length with the patient. The patient gave consent to the procedure as well as the medication used for sedation. The patient was placed in the left lateral decubitus position. Digital rectal exam showed internal hemorrhoids. An Olympus variable torsion adult colonoscope was inserted into the rectum and advanced to the cecum. The cecum was identified by the ileocecal valve and the appendiceal orifice. The scope was then withdrawn the prep was good with only small amounts of liquid stool. The patient had one transverse colon polyp measuring 5 mm removed with cold snare polypectomy, and a 1 cm descending colon polyp removed with hot snare polypectomy. Retroflexion showed internal hemorrhoids. The patient tolerated the procedure well. [place] BOWEL PREP SCORE: 8 COLONOSCOPY START TIME: 908 CECUM TIME: 910 COLONOSCOPY END TIME: 924 IMPRESSION: 1. 2 colon polyps and internal hemorrhoids RECOMMENDATIONS: 1. Follow up in GI clinic for procedure and pathology results 2. High-fiber diet 3. Follow up with primary care physician 4. Medical management of the hemorrhoids 5. Repeat colonoscopy in three years unless otherwise indicated I WOULD LIKE TO THANK DR. MACHUCA FOR THIS REFERRAL USAMA CONNOLLY MD Jul 20, 2024 09:30
[2024-07-20 10:00] VITALS: BP 164/95; PULSE 82; RESP 16; O2SAT 96
== END 2024-07-20 10:10 | disposition home or self-care (01) ==
LOC: GI 07:00
PROVIDERS: ATTEND Specialist
DX: Z12.11 Encounter for screening for malignant neoplasm of colon (principal); D12.4 Benign neoplasm of descending colon; D12.3 Benign neoplasm of transverse colon; K64.8 Other hemorrhoids; I10 Essential (primary) hypertension; E11.9 Type 2 diabetes mellitus without complications; E78.00 Pure hypercholesterolemia, unspecified; Z89.432 Acquired absence of left foot; Z98.890 Other specified postprocedural states
CPT/HCPCS: 36415; 45385; 80053; 82962; 85025; 85610; 85730; 88305; J2250; J3010; J7030; 45380; 99152